=== PATIENT | female | born 1945 | race American Indian/Alaskan Native ===

== ENCOUNTER 2018-05-07 08:27 | Day surgery (SDC) | payer MEDICARE ==
[2017-12-28 09:31] VITALS: BMI 22.7
[2018-05-07] MEDS ORDERED: Lactated Ringer's 500 ML IV ONE (10:28)
[2018-05-07 11:04] VITALS: TEMP 97; O2SAT 100
[2018-05-07] MEDS ORDERED: Propofol 10 mg/ml Inj (20 ML) ONE (12:20)
[2018-05-07] MEDS ORDERED: ePHEDrine 50 mg/ml Inj ONE (12:45)
[2018-05-07 13:07] VITALS: BP 110/63; PULSE 66; RESP 12
== END 2018-05-07 13:15 | disposition home or self-care (01) ==
LOC: H.ENDO 08:27
PROVIDERS: ATTEND Internal Medicine Gastroenterology
DX: Z86.010 Personal history of colon polyps (principal); K64.8 Other hemorrhoids; D64.9 Anemia, unspecified; N18.3 Chronic kidney disease, stage 3 (moderate); I12.9 Hypertensive chronic kidney disease with stage 1 through stage 4 chronic kidney disease, or unspecified chronic kidney disease
CPT/HCPCS: G0105; J2001; J2704; J7120

== ENCOUNTER 2019-01-28 08:42 | Day surgery (SDC) | payer MEDICARE ==
[2019-01-28 11:55] VITALS: BMI 23.6
[2019-01-28] MEDS ORDERED: Sodium Chloride 0.9% 250 ML IV ONE ×2 (11:56→13:42)
[2019-01-28 12:13] VITALS: O2SAT 100
[2019-01-28] MEDS ORDERED: Midazolam 2 MG/2 ML VIAL ONE (13:31)
[2019-01-28] MEDS ORDERED: Propofol 10 mg/ml Inj (20 ML) ONE (13:31)
[2019-01-28 13:52] VITALS: RESP 20; TEMP 97.9
[2019-01-28 14:11] VITALS: BP 113/61; PULSE 65
== END 2019-01-28 14:31 | disposition home or self-care (01) ==
LOC: H.ENDO 08:42
PROVIDERS: ATTEND Internal Medicine Gastroenterology
DX: K30 Functional dyspepsia (principal); I10 Essential (primary) hypertension; E78.5 Hyperlipidemia, unspecified; D64.9 Anemia, unspecified; K44.9 Diaphragmatic hernia without obstruction or gangrene; K31.89 Other diseases of stomach and duodenum; K29.50 Unspecified chronic gastritis without bleeding
CPT/HCPCS: 43239; 88305; 88342; J2250; J2704; J7030